=== PATIENT | female | born 1980 | race Caucasian/White ===

== ENCOUNTER → 2021-08-24 | Outpatient (CLI) | payer OTHER | LOC: COL.RAD 13:50 | DX: M25.551 Pain in right hip (principal); M25.552 Pain in left hip; G89.29 Other chronic pain; R93.5 Abnormal findings on diagnostic imaging of other abdominal regions, including retroperitoneum; M85.60 Other cyst of bone, unspecified site; Z95.5 Presence of coronary angioplasty implant and graft ==